=== PATIENT | female | born 1955 | race Caucasian/White ===

== ENCOUNTER 2018-10-07 19:30 | Emergency (ER) | payer SELFPAY ==
[~2018-10-07] VITALS: Ht 124.5 cm; Wt 64.9 kg
[2018-10-07 19:36] VITALS: BP 125/77
[2018-10-07 21:21] LABS: BASOPHILS % (AUTO) 0.3 % (0.0-2.0); EOSINOPHILS # (AUTO) 0.1 K/uL (0-0.4); EOSINOPHILS % (AUTO) 1.4 % (0.0-4.0); HEMATOCRIT 46.5 % (36-48); HEMOGLOBIN 15.5 g/dL (12.0-16.0); LYMPHOCYTES # (AUTO) 1.8 K/uL (2.5-16.5); MEAN CORPUSCULAR HEMOGLOBIN 28 pg (27-31); MEAN CORPUSCULAR HGB CONC 33 g/dL (33-37); MEAN CORPUSCULAR VOLUME 85.3 fL (80-94); MONOCYTES # (AUTO) 0.6 K/uL (0.8-1.0); MONOCYTES % (AUTO) 9.5 % (1.7-9.3); NEUTROPHILS # (AUTO) 3.9 K/uL (1.8-7.7); NEUTROPHILS % (AUTO) 60.8 % (42.2-75.2); PLATELET COUNT (AUTO) 189 K/uL (140-450); RED BLOOD CELL COUNT(AUTO) 5.45 MIL/uL (4.20-5.40); RED CELL DISTRIBUTION WIDTH 13.3 % (11.6-13.7); WHITE BLOOD COUNT (AUTO) 6.4 K/uL (4.8-10.8)
[2018-10-07 21:29] LABS: ANION GAP 10.9 (8-16); CARBON DIOXIDE 29.1 mmol/L (21-32); CREATININE 0.9 mg/dL (0.6-1.3)
[2018-10-07 21:35] LABS: ALBUMIN 3.7 g/dL (3.4-5.0); TOTAL BILIRUBIN 1.7 mg/dL (0.0-1.0)
--- NOTE | 2018-10-07 21:50 | NUR ---
PT AMBULATED TO BED 9
--- NOTE | 2018-10-07 21:55 | NUR ---
PT BIB FAMILY FOR ABD PAIN X1 DAY. PT REPORTS ACHY BURNING PAIN AT 10/10 IN HER ABD THAT RADIATES TO BACK. ABD IS FLAT, SOFT, TENDER IN EPIGASTRIC REGION, AND BOWEL SOUNDS ACTIVE X4 QUADRANTS. PT REPORTS BURNING WITH URINATION, ALONG WITH STRONG ODOR AND CLOUDY QUALITY. ER MD TO SEE PT. WILL CONTINUE TO MONITOR.
[2018-10-07] MEDS ORDERED: MORPHINE SULFATE 4 MG/ML SYR IVP ONE (22:15)
[2018-10-07] MEDS ORDERED: FAMOTIDINE 20 MG/2 ML VIAL IVP ONE (22:15)
[2018-10-07 22:23] LABS: APPEARANCE,URINE CLEAR (CLEAR); BILIRUBIN,URINE NEGATIVE (NEGATIVE); BLOOD, URINE NEGATIVE (NEGATIVE); COLOR,URINE YELLOW (YELLOW); LEUKOCYTE ESTERASE ,URINE NEGATIVE (NEGATIVE); NITRITE, URINE NEGATIVE (NEGATIVE); UGLUCOSE NEGATIVE (NEGATIVE)
--- NOTE | 2018-10-07 23:21 | NUR ---
PT AT CT AT THIS TIME.
[2018-10-08] MEDS ORDERED: KETOROLAC 15 MG/ML VIAL IVP ONE (00:45)
--- NOTE | 2018-10-08 01:47 | NUR ---
Patient discharged with v/s stable. Written and verbal after care instructions given and explained. Patient alert, oriented and verbalized understanding of instructions. Ambulatory with steady gait. All questions addressed prior to discharge. ID band removed. Patient advised to follow up with PMD. Rx of NORCO AND MIRALAX given. Patient educated on indication of medication including possible reaction and side effects. Opportunity to ask questions provided and answered.
[2018-10-08 01:56] VITALS: BP 121/87
== END 2018-10-08 01:56 | disposition home or self-care (01) ==
LOC: EDBD 19:30 → MED 19:30
DX: R74.0 Nonspecific elevation of levels of transaminase and lactic acid dehydrogenase [LDH] (principal); K21.9 Gastro-esophageal reflux disease without esophagitis; Z90.49 Acquired absence of other specified parts of digestive tract; Z90.710 Acquired absence of both cervix and uterus
CPT/HCPCS: 36415; 74177; 80053; 81003; 83690; 85025; 96374; 96375; 99284; G0482; J1885; J2270; J3490; Q9967